=== PATIENT | male | born 2000 | race Caucasian/White ===

== ENCOUNTER 2024-04-03 23:25 | Inpatient (IN) | payer OTHER ==
[~2024-04-03] VITALS: Ht 175.3 cm; Wt 72.7 kg
[2024-04-04 00:33] LABS: BASOPHILS % (AUTO) 0.7 % (0.0-2.0); EOSINOPHILS % (AUTO) 2.4 % (1.0-6.0); HEMATOCRIT 45.4 % (41-53); HEMOGLOBIN 15.5 g/dL (13.5-17.5); LYMPHOCYTES # (AUTO) 2.4 K/uL (1.0-4.8); LYMPHOCYTES % (AUTO) 30.7 % (22.0-44.0); MEAN CORPUSCULAR HEMOGLOBIN 30.4 pg (26.0-34.0); MEAN CORPUSCULAR HGB CONC 34.1 G/dL (31.0-37.0); MEAN CORPUSCULAR VOLUME 89 fL (80-100); MONOCYTES # (AUTO) 0.7 K/uL (0.1-1.0); MONOCYTES % (AUTO) 8.5 % (2.0-9.0); NEUTROPHILS # (AUTO) 4.4 K/uL (1.8-7.7); NEUTROPHILS % (AUTO) 57.7 % (40.0-70.0); PLATELET COUNT (AUTO) 271 K/uL (150-450); RED CELL DISTRIBUTION WIDTH 13.3 % (11.5-14.5); WHITE BLOOD COUNT (AUTO) 7.7 K/uL (4.5-11.0)
[2024-04-04 00:43] LABS: ANION GAP 11 mmol/L (8-16); CALCIUM, TOTAL 8.9 mg/dL (8.8-10.5); CARBON DIOXIDE 26 mmol/L (22-29); CHLORIDE 98 mmol/L (98-107); CREATININE 1.11 mg/dL (0.60-1.30); GLOMERULAR FILTR. RATE CALC > 60 mL/min (>60); GLUCOSE,RANDOM 91 mg/dL (70-110); POTASSIUM 3.7 mmol/L (3.5-5.1); SODIUM SERUM 135 mmol/L (136-145); UREA NITROGEN, BLOOD 16 mg/dL (7-18)
[2024-04-04 00:45] LABS: ALCOHOL, BLOOD (SERUM) < 3 mg/dL (0-10)
[2024-04-04] MEDS: ACETAMINOPHEN 500 MG TABLET PO ONE (01:24)
[2024-04-04 02:10] LABS: COVID AG,FIA SOURCE NASAL SWAB
[2024-04-04 02:23] LABS: SARS-COV2 (COVID) ANTIGEN,FIA Negative (Negative)
[2024-04-04] MEDS ORDERED: ALBUTEROL SULFATE 2.5 MG/0.5 ML NEB SOLUTION NEB PRN (02:30)
[2024-04-04] MEDS ORDERED: IPRATROPIUM BROMIDE 0.5 MG/2.5 ML NEB SOLUTION NEB PRN (02:30)
[2024-04-04] MEDS ORDERED: ZOLPIDEM TARTRATE 5 MG TABLET PO PRN (02:30)
[2024-04-04] MEDS ORDERED: BISACODYL 10 MG RECTAL RECTAL SUPPOSITORY PR PRN (02:30)
[2024-04-04] MEDS ORDERED: ACETAMINOPHEN 325 MG TABLET PO PRN (02:30)
[2024-04-04] MEDS ORDERED: ONDANSETRON HCL 4 MG/2 ML VIAL IVP PRN (02:30)
[2024-04-04] MEDS ORDERED: MAGNESIUM HYDROXIDE SUSPENSION 30 ML UDCUP PO PRN (02:30)
[2024-04-04] MEDS: HEPARIN SODIUM,PORCINE 5,000 UNITS/ML VIAL SQ SCH (07:23)
[2024-04-04] MEDS: PANTOPRAZOLE SODIUM 40 MG DR TABLET PO SCH (08:51)
[2024-04-04 15:50] VITALS: BP 99/58; PULSE 63; RESP 18; TEMP 98.6
[2024-04-04 17:43] LABS: ALCOHOL, URINE DRUG SCREEN NEGATIVE (NEGATIVE); AMPHET/METH SCREEN,URINE NEGATIVE (NEGATIVE); BARBITURATE SCREEN, URINE NEGATIVE (NEGATIVE); BENZODIAZEPINES SCREEN,URINE NEGATIVE (NEGATIVE); CANNABINOID SCREEN,URINE POSITIVE (NEGATIVE); COCAINE SCREEN,URINE NEGATIVE (NEGATIVE); METHADONE SCREEN, URINE NEGATIVE (NEGATIVE); OPIATE SCREEN,URINE NEGATIVE (NEGATIVE); PHENCYCLIDINE SCREEN,URINE NEGATIVE (NEGATIVE)
[2024-04-04 19:03] VITALS: BP 105/56; PULSE 69; RESP 18; TEMP 98.6
[2024-04-06 23:06] VITALS: BP 114/66; PULSE 74; RESP 18; TEMP 98.4
== END 2024-04-07 17:18 | DRG 885 ==
LOC: EMS 23:25 → EDH 04-04 03:16 → 6S 04-04 10:15
PROVIDERS: ADMIT Hospitalist; ATTEND Hospitalist
PROC: GZ56ZZZ Individual Psychotherapy, Supportive (ICD-10-PCS; principal; 2024-04-06)
DX: F33.2 Major depressive disorder, recurrent severe without psychotic features (principal); R45.851 Suicidal ideations; Z20.822 Contact with and (suspected) exposure to COVID-19; R51.9 Headache, unspecified; S50.812A Abrasion of left forearm, initial encounter; G40.909 Epilepsy, unspecified, not intractable, without status epilepticus; X58.XXXA Exposure to other specified factors, initial encounter; Y93.89 Activity, other specified; Y92.89 Other specified places as the place of occurrence of the external cause; Y99.8 Other external cause status
CPT/HCPCS: 80048; 80307; 85025; 99285; G0480; J1644

== ENCOUNTER 2024-04-11 00:57 | Inpatient (IN) | payer OTHER ==
[~2024-04-11] VITALS: Ht 170.2 cm; Wt 72.7 kg
[2024-04-11] MEDS ORDERED: ZOLPIDEM TARTRATE 5 MG TABLET PO PRN (06:15)
[2024-04-11] MEDS ORDERED: ACETAMINOPHEN 325 MG TABLET PO PRN (06:15)
[2024-04-11] MEDS ORDERED: MAGNESIUM HYDROXIDE SUSPENSION 30 ML UDCUP PO PRN (06:15)
[2024-04-11] MEDS: FAMOTIDINE 20 MG TABLET PO SCH (09:00)
[2024-04-11 14:59] LABS: APPEARANCE,URINE CLEAR (CLEAR); BILIRUBIN,URINE NEGATIVE (NEGATIVE); COLOR,URINE YELLOW (YELLOW); GLUCOSE, URINE (UA) NEGATIVE (NEGATIVE); KETONES,URINE TRACE mg/dL (NEGATIVE); LEUKOCYTE ESTERASE ,URINE NEGATIVE (NEGATIVE); NITRATE,URINE NEGATIVE (NEGATIVE); OCCULT BLOOD,URINE NEGATIVE (NEGATIVE); PROTEIN,URINE 30-70 mg/dL (NEGATIVE); SPECIFIC GRAVITIY, URINE 1.035 (1.003-1.030); UROBILINOGEN,URINE <=1.0 mg/dL (<=1.0)
[2024-04-11 15:06] LABS: ALCOHOL, URINE DRUG SCREEN NEGATIVE (NEGATIVE); AMPHET/METH SCREEN,URINE NEGATIVE (NEGATIVE); BARBITURATE SCREEN, URINE NEGATIVE (NEGATIVE); BENZODIAZEPINES SCREEN,URINE NEGATIVE (NEGATIVE); CANNABINOID SCREEN,URINE POSITIVE (NEGATIVE); COCAINE SCREEN,URINE NEGATIVE (NEGATIVE); METHADONE SCREEN, URINE NEGATIVE (NEGATIVE); OPIATE SCREEN,URINE NEGATIVE (NEGATIVE); PHENCYCLIDINE SCREEN,URINE NEGATIVE (NEGATIVE)
[2024-04-11 18:24] VITALS: BP 102/77; PULSE 70; RESP 18; TEMP 98.3; O2SAT 100
[2024-04-11 20:32] VITALS: BP 117/63; PULSE 72; RESP 18; TEMP 98; O2SAT 97
[2024-04-12 04:10] VITALS: BP 102/61; PULSE 59; RESP 20; TEMP 98.4; O2SAT 100
[2024-04-13 03:37] VITALS: BP 110/65; PULSE 64; RESP 20; O2SAT 99
[2024-04-15 09:37] VITALS: BP 132/72; PULSE 72; RESP 19; TEMP 97.5; O2SAT 99
[2024-04-18 08:04] VITALS: BP 120/74; PULSE 63; RESP 18; TEMP 98.5; O2SAT 99
[2024-04-18 20:02] VITALS: BP 93/56; PULSE 83; RESP 18; TEMP 98.5; O2SAT 96
[2024-04-19 00:02] VITALS: BP 97/48; PULSE 70; RESP 18; O2SAT 99
[2024-04-19 04:00] VITALS: BP 100/66; PULSE 74; RESP 19; O2SAT 99
[2024-04-19 16:10] VITALS: BP 94/53; PULSE 60; RESP 19; TEMP 98; O2SAT 98
[2024-04-19 20:00] VITALS: BP 99/59; PULSE 81; RESP 18; TEMP 97.5; O2SAT 97
[2024-04-20 06:31] VITALS: BP 130/83; PULSE 78; RESP 18; TEMP 98; O2SAT 98
== END 2024-04-20 10:22 | DRG 885 ==
LOC: EMS 00:57 → EDH 06:53 → 6S 17:27
PROVIDERS: ADMIT Internal Medicine; ATTEND Internal Medicine
PROC: GZ56ZZZ Individual Psychotherapy, Supportive (ICD-10-PCS; principal; 2024-04-13)
DX: F33.2 Major depressive disorder, recurrent severe without psychotic features (principal); R45.851 Suicidal ideations; I10 Essential (primary) hypertension; G40.909 Epilepsy, unspecified, not intractable, without status epilepticus; Z91.199 Patient's noncompliance with other medical treatment and regimen due to unspecified reason
CPT/HCPCS: 80307; 81003; 99285

== ENCOUNTER 2024-04-20 15:25 | Inpatient (IN) | payer OTHER ==
[~2024-04-20] VITALS: Ht 175.3 cm; Wt 66.3 kg
== END 2024-04-22 17:03 | DRG 881 ==
LOC: EMS 15:25 → EDH 17:10 → 6S 18:15
PROVIDERS: ADMIT Internal Medicine; ATTEND Internal Medicine
PROC: GZ56ZZZ Individual Psychotherapy, Supportive (ICD-10-PCS; principal; 2024-04-21)
DX: F32.A Depression, unspecified (principal); R45.851 Suicidal ideations; I10 Essential (primary) hypertension
CPT/HCPCS: 99285; Z7502

== ENCOUNTER 2024-04-22 18:37 | Emergency (ER) | payer OTHER | END 2024-04-23 02:01 | LOC: EMS 18:52 | DX: R45.88 Nonsuicidal self-harm (principal); F32.A Depression, unspecified | CPT/HCPCS: 99283; Z7502 ==

== ENCOUNTER 2024-04-23 01:09 | Emergency (ER) | payer OTHER | END 2024-04-23 05:50 | LOC: EMS 01:09 | DX: F41.9 Anxiety disorder, unspecified (principal); R45.88 Nonsuicidal self-harm; F32.A Depression, unspecified | CPT/HCPCS: 99283; Z7502 ==

== ENCOUNTER 2024-05-20 16:28 | Inpatient (IN) | payer OTHER ==
[~2024-05-20] VITALS: Ht 167.6 cm; Wt 72.0 kg
[2024-05-20] MEDS ORDERED: ACETAMINOPHEN 325 MG TABLET PO PRN (20:15)
[2024-05-20] MEDS ORDERED: ONDANSETRON HCL 4 MG/2 ML VIAL IVP PRN (20:15)
[2024-05-20] MEDS ORDERED: DEXTROSE 50%-WATER 25 GM/50 ML SYRINGE IVP PRN (20:15)
[2024-05-20] MEDS ORDERED: INSULIN LISPRO 100 UNITS/ML SQ PRN (20:15)
[2024-05-20] MEDS: LORazepam 2 MG/ML VIAL IM ONE (20:24)
[2024-05-20] MEDS: DiphenhydrAMINE HCL 50 MG/ML VIAL IM ONE (20:24)
[2024-05-20] MEDS: HALOPERIDOL LACTATE 5 MG/ML VIAL IM ONE (20:25)
[2024-05-20] MEDS: DOCUSATE SODIUM 100 MG CAPSULE PO SCH (20:37)
[2024-05-20 20:57] LABS: BASOPHILS % (AUTO) 0.8 % (0.0-2.0); EOSINOPHILS % (AUTO) 2.9 % (1.0-6.0); HEMOGLOBIN 14.6 g/dL (13.5-17.5); LYMPHOCYTES # (AUTO) 3.2 K/uL (1.0-4.8); LYMPHOCYTES % (AUTO) 40.1 % (22.0-44.0); MEAN CORPUSCULAR HEMOGLOBIN 29.5 pg (26.0-34.0); MEAN CORPUSCULAR HGB CONC 33.8 G/dL (31.0-37.0); MEAN CORPUSCULAR VOLUME 87 fL (80-100); MONOCYTES # (AUTO) 0.4 K/uL (0.1-1.0); MONOCYTES % (AUTO) 5.4 % (2.0-9.0); NEUTROPHILS % (AUTO) 50.8 % (40.0-70.0); PLATELET COUNT (AUTO) 302 K/uL (150-450); RED BLOOD CELL COUNT(AUTO) 4.93 MIL/uL (4.50-5.90); RED CELL DISTRIBUTION WIDTH 13.8 % (11.5-14.5); WHITE BLOOD COUNT (AUTO) 7.9 K/uL (4.5-11.0)
[2024-05-20 21:13] LABS: ANION GAP 10 mmol/L (8-16); CALCIUM, TOTAL 9.1 mg/dL (8.8-10.5); CARBON DIOXIDE 29 mmol/L (22-29); CHLORIDE 101 mmol/L (98-107); CREATININE 0.83 mg/dL (0.60-1.30); GLOMERULAR FILTR. RATE CALC > 60 mL/min (>60); GLUCOSE,RANDOM 90 mg/dL (70-110); POTASSIUM 3.8 mmol/L (3.5-5.1); SODIUM SERUM 140 mmol/L (136-145); UREA NITROGEN, BLOOD 9 mg/dL (7-18)
[2024-05-20] MEDS: HEPARIN SODIUM,PORCINE 5,000 UNITS/ML VIAL SQ SCH (23:07)
[2024-05-21 08:24] VITALS: BP 128/78; PULSE 78; RESP 18; TEMP 98.4; O2SAT 96
[2024-05-22 06:00] VITALS: BP 95/57; PULSE 68; RESP 18; TEMP 97.7; O2SAT 100
[2024-05-22 08:16] VITALS: BP 92/56; PULSE 61; RESP 18; TEMP 98.3; O2SAT 100
[2024-05-22 13:28] VITALS: BP 98/56; PULSE 88; RESP 20; TEMP 98.3; O2SAT 99
== END 2024-05-23 13:55 | DRG 885 ==
LOC: EMS 16:28 → EDH 20:49 → 6S 05-21 08:07
PROVIDERS: ADMIT Internal Medicine; ATTEND Internal Medicine
DX: F33.2 Major depressive disorder, recurrent severe without psychotic features (principal); R45.851 Suicidal ideations; G40.909 Epilepsy, unspecified, not intractable, without status epilepticus; F60.9 Personality disorder, unspecified; F12.10 Cannabis abuse, uncomplicated; Z91.199 Patient's noncompliance with other medical treatment and regimen due to unspecified reason
CPT/HCPCS: 80048; 85025; 99285; G0378; J1200; J1630; J1644; J2060

== ENCOUNTER 2024-07-09 15:21 | Inpatient (IN) | payer OTHER ==
[~2024-07-09] VITALS: Ht 170.2 cm; Wt 59.1 kg
[2024-07-09 09:18] VITALS: BP 111/72; PULSE 68; RESP 18; TEMP 98; O2SAT 100
[2024-07-09] MEDS ORDERED: MAGNESIUM HYDROXIDE SUSPENSION 30 ML UDCUP PO PRN (21:15)
[2024-07-09] MEDS ORDERED: ONDANSETRON HCL 4 MG/2 ML VIAL IVP PRN (21:15)
[2024-07-09] MEDS ORDERED: BISACODYL 10 MG RECTAL RECTAL SUPPOSITORY PR PRN (21:15)
[2024-07-09 21:35] LABS: BASOPHILS % (AUTO) 0.8 % (0.0-2.0); EOSINOPHILS % (AUTO) 2.3 % (1.0-6.0); HEMOGLOBIN 15.9 g/dL (13.5-17.5); LYMPHOCYTES # (AUTO) 2.7 K/uL (1.0-4.8); LYMPHOCYTES % (AUTO) 42.9 % (22.0-44.0); MEAN CORPUSCULAR HEMOGLOBIN 30.7 pg (26.0-34.0); MEAN CORPUSCULAR HGB CONC 35.3 G/dL (31.0-37.0); MEAN CORPUSCULAR VOLUME 87 fL (80-100); MONOCYTES # (AUTO) 0.6 K/uL (0.1-1.0); NEUTROPHILS # (AUTO) 2.8 K/uL (1.8-7.7); PLATELET COUNT (AUTO) 328 K/uL (150-450); RED BLOOD CELL COUNT(AUTO) 5.17 MIL/uL (4.50-5.90); RED CELL DISTRIBUTION WIDTH 12.6 % (11.5-14.5); WHITE BLOOD COUNT (AUTO) 6.3 K/uL (4.5-11.0)
[2024-07-09 21:43] LABS: ANION GAP 6 mmol/L (8-16); CALCIUM, TOTAL 8.5 mg/dL (8.8-10.5); CARBON DIOXIDE 31 mmol/L (22-29); CHLORIDE 100 mmol/L (98-107); GLOMERULAR FILTR. RATE CALC > 60 mL/min (>60); GLUCOSE,RANDOM 101 mg/dL (70-110); POTASSIUM 3.4 mmol/L (3.5-5.1); SODIUM SERUM 137 mmol/L (136-145); UREA NITROGEN, BLOOD 18 mg/dL (7-18)
[2024-07-09 21:51] LABS: ALCOHOL, BLOOD (SERUM) < 3 mg/dL (0-10)
[2024-07-10 04:38] VITALS: BP 101/57; PULSE 63; RESP 16; TEMP 97.8; O2SAT 100
[2024-07-10] MEDS: DOCUSATE SODIUM 100 MG CAPSULE PO SCH (08:41)
[2024-07-10] MEDS: PANTOPRAZOLE SODIUM 40 MG DR TABLET PO SCH (08:41)
[2024-07-10] MEDS: POTASSIUM CHLORIDE 20 MEQ ER TABLET PO ONE (16:12)
[2024-07-10 16:41] VITALS: BP 104/50; PULSE 70; RESP 19; TEMP 98.3; O2SAT 97
[2024-07-10] MEDS: ACETAMINOPHEN 325 MG TABLET PO PRN (20:17)
[2024-07-10] MEDS: OLANZapine 10 MG TABLET PO SCH (20:17)
[2024-07-11 20:02] VITALS: BP 110/61; PULSE 64; RESP 20; TEMP 97.3; O2SAT 99
[2024-07-12 05:19] VITALS: BP 98/61; PULSE 54; RESP 18; TEMP 97.5; O2SAT 100
[2024-07-12 16:01] LABS: ANION GAP 7 mmol/L (8-16); CALCIUM, TOTAL 8.8 mg/dL (8.8-10.5); CARBON DIOXIDE 30 mmol/L (22-29); CHLORIDE 102 mmol/L (98-107); CREATININE 0.92 mg/dL (0.60-1.30); GLOMERULAR FILTR. RATE CALC > 60 mL/min (>60); GLUCOSE,RANDOM 90 mg/dL (70-110); POTASSIUM 3.9 mmol/L (3.5-5.1); SODIUM SERUM 139 mmol/L (136-145); UREA NITROGEN, BLOOD 16 mg/dL (7-18)
[2024-07-12 20:11] VITALS: BP 111/66; PULSE 69; RESP 18; TEMP 98.4; O2SAT 98
[2024-07-13 16:08] VITALS: BP 116/63; PULSE 75; RESP 18; TEMP 98.4; O2SAT 99
[2024-07-13 20:24] VITALS: BP 100/52; PULSE 66; RESP 18; TEMP 98.1; O2SAT 96
[2024-07-14 20:01] VITALS: BP 98/67; PULSE 88; RESP 20; TEMP 98; O2SAT 96
[2024-07-15 19:46] VITALS: RESP 18; TEMP 98; O2SAT 96
[2024-07-16 19:29] VITALS: BP 99/50; PULSE 81; RESP 18; TEMP 98.4; O2SAT 97
[2024-07-17] MEDS: HEPARIN SODIUM,PORCINE 5,000 UNITS/ML VIAL SQ SCH (16:03)
[2024-07-17 19:38] VITALS: BP 102/57; PULSE 74; RESP 18; TEMP 98.9; O2SAT 98
[2024-07-18 05:00] VITALS: BP 98/56; PULSE 59; RESP 18; TEMP 98.1; O2SAT 97
[2024-07-18 19:40] VITALS: BP 102/53; PULSE 74; RESP 18; TEMP 98.8; O2SAT 95
[2024-07-18] MEDS: ZOLPIDEM TARTRATE 5 MG TABLET PO PRN (23:33)
[2024-07-19 19:40] VITALS: BP 100/54; PULSE 77; RESP 18; TEMP 98; O2SAT 97
[2024-07-20 04:20] VITALS: BP 98/60; PULSE 67; RESP 18; TEMP 98; O2SAT 97
[2024-07-20 20:09] VITALS: BP 114/57; PULSE 70; RESP 19; TEMP 98.1; O2SAT 96
[2024-07-21 20:17] VITALS: BP 101/54; PULSE 82; RESP 18; TEMP 98.2; O2SAT 98
[2024-07-22] MEDS ORDERED: DOCU-385 PO (12:53)
[2024-07-22] MEDS ORDERED: HEPA500018 SQ (12:54)
[2024-07-22] MEDS ORDERED: OLAN10TA74 PO (12:55)
[2024-07-22] MEDS ORDERED: PANT-31 PO (12:56)
[2024-07-22] MEDS ORDERED: ACET-2247 PO (13:05)
[2024-07-22] MEDS ORDERED: BISA10SU11 PR (13:06)
[2024-07-22] MEDS ORDERED: MAGN-169 PO (13:07)
[2024-07-22] MEDS ORDERED: ONDA4VIA60 IVP (13:09)
[2024-07-22] MEDS ORDERED: ZOLP-280 PO (13:10)
== END 2024-07-22 15:30 | DRG 885 ==
LOC: EMS 15:21 → EDH 17:33 → 6S 20:56
PROVIDERS: ADMIT Internal Medicine; ATTEND Internal Medicine
PROC: GZ52ZZZ Individual Psychotherapy, Cognitive (ICD-10-PCS; principal; 2024-07-12)
DX: F25.1 Schizoaffective disorder, depressive type (principal); R45.851 Suicidal ideations; E87.6 Hypokalemia; G40.909 Epilepsy, unspecified, not intractable, without status epilepticus; F17.200 Nicotine dependence, unspecified, uncomplicated; F60.0 Paranoid personality disorder; Z79.899 Other long term (current) drug therapy; Z91.51 Personal history of suicidal behavior
CPT/HCPCS: 80048; 85025; 99285; G0480; J1644

== ENCOUNTER 2024-07-24 01:32 | Inpatient (IN) | payer OTHER ==
[~2024-07-24] VITALS: Ht 170.2 cm; Wt 67.3 kg
[~2024-07-24 01:32] MED LIST: OLAN10TA74 PO; PANT-31 PO
[2024-07-24] MEDS: ONDANSETRON HCL 4 MG/2 ML VIAL IVP ONE (02:05)
[2024-07-24] MEDS: SODIUM CHLORIDE 0.9% 1,000 ML IV ONE ×2 (02:05→06:30)
[2024-07-24 02:36] LABS: COVID AG,FIA SOURCE NASAL SWAB
[2024-07-24 02:38] LABS: BASOPHILS % (AUTO) 0.7 % (0.0-2.0); EOSINOPHILS % (AUTO) 3.5 % (1.0-6.0); HEMATOCRIT 45.9 % (41-53); HEMOGLOBIN 16.2 g/dL (13.5-17.5); LYMPHOCYTES % (AUTO) 35.8 % (22.0-44.0); MEAN CORPUSCULAR HEMOGLOBIN 30.8 pg (26.0-34.0); MEAN CORPUSCULAR HGB CONC 35.3 G/dL (31.0-37.0); MEAN CORPUSCULAR VOLUME 87 fL (80-100); MONOCYTES # (AUTO) 0.7 K/uL (0.1-1.0); MONOCYTES % (AUTO) 8.5 % (2.0-9.0); NEUTROPHILS # (AUTO) 4.3 K/uL (1.8-7.7); NEUTROPHILS % (AUTO) 51.5 % (40.0-70.0); PLATELET COUNT (AUTO) 308 K/uL (150-450); RED BLOOD CELL COUNT(AUTO) 5.27 MIL/uL (4.50-5.90); RED CELL DISTRIBUTION WIDTH 12.3 % (11.5-14.5); WHITE BLOOD COUNT (AUTO) 8.4 K/uL (4.5-11.0)
[2024-07-24 02:41] LABS: SARS-COV2 (COVID) ANTIGEN,FIA Negative (Negative)
[2024-07-24 02:43] LABS: ANION GAP 7 mmol/L (8-16); CALCIUM, TOTAL 9.6 mg/dL (8.8-10.5); CARBON DIOXIDE 29 mmol/L (22-29); CHLORIDE 100 mmol/L (98-107); CREATININE 1.01 mg/dL (0.60-1.30); GLOMERULAR FILTR. RATE CALC > 60 mL/min (>60); GLUCOSE,RANDOM 86 mg/dL (70-110); POTASSIUM 4.7 mmol/L (3.5-5.1); SODIUM SERUM 136 mmol/L (136-145); UREA NITROGEN, BLOOD 18 mg/dL (7-18)
[2024-07-24 02:48] LABS: ALANINE AMINOTRANSFERASE 155 U/L (12-78); ALBUMIN 4.1 g/dL (3.4-5.0); ALKALINE PHOSPHATASE 86 U/L (46-116); ASPARTATE AMINOTRANSFERASE 103 U/L (15-37); BILIRUBIN,TOTAL 0.5 mg/dL (0.1-1.0); TOTAL PROTEIN, SERUM 8.3 g/dL (6.4-8.2)
[2024-07-24] MEDS ORDERED: IPRATROPIUM BROMIDE 0.5 MG/2.5 ML NEB SOLUTION NEB PRN (12:00)
[2024-07-24] MEDS ORDERED: BISACODYL 10 MG RECTAL RECTAL SUPPOSITORY PR PRN (12:00)
[2024-07-24] MEDS ORDERED: ACETAMINOPHEN 325 MG TABLET PO PRN (12:00)
[2024-07-24] MEDS ORDERED: ONDANSETRON HCL 4 MG/2 ML VIAL IVP PRN (12:00)
[2024-07-24] MEDS ORDERED: ALBUTEROL SULFATE 2.5 MG/0.5 ML NEB SOLUTION NEB PRN (12:00)
[2024-07-24] MEDS ORDERED: MORPHINE SULFATE 2 MG/ML SYRINGE IVP PRN (12:00)
[2024-07-24] MEDS ORDERED: MAGNESIUM HYDROXIDE SUSPENSION 30 ML UDCUP PO PRN (12:00)
[2024-07-24] MEDS ORDERED: HYDROCODONE/ACETAMINOPHEN 5-325 MG TABLET PO PRN (12:00)
[2024-07-24 15:00] VITALS: BP 94/51; PULSE 64; RESP 18; TEMP 98.2; O2SAT 100
[2024-07-24] MEDS ORDERED: INFLUENZA VIRUS VACCINE TVS (6MO+) 2024-25/PF 45 MCG/0.5 ML SYRINGE IM. ONE (15:00)
[2024-07-24] MEDS: PEG 3350/NA SULF,BICARB,CL/KCL 4000 ML SOLUTION PO ONE (15:16)
[2024-07-24] MEDS: HEPARIN SODIUM,PORCINE 5,000 UNITS/ML VIAL SQ SCH (16:00)
[2024-07-24 19:57] VITALS: BP 90/53; PULSE 67; RESP 18; TEMP 98.3; O2SAT 100
[2024-07-24] MEDS: ZOLPIDEM TARTRATE 5 MG TABLET PO PRN (20:38)
[2024-07-24] MEDS: DOCUSATE SODIUM 100 MG CAPSULE PO SCH (20:39)
[2024-07-25] MEDS: PANTOPRAZOLE SODIUM 40 MG/VIAL IVP SCH (08:35)
[2024-07-25 11:30] LABS: BASOPHILS % (AUTO) 0.7 % (0.0-2.0); HEMATOCRIT 42.5 % (41-53); HEMOGLOBIN 14.8 g/dL (13.5-17.5); LYMPHOCYTES # (AUTO) 2.3 K/uL (1.0-4.8); LYMPHOCYTES % (AUTO) 37.2 % (22.0-44.0); MEAN CORPUSCULAR HEMOGLOBIN 30.3 pg (26.0-34.0); MEAN CORPUSCULAR HGB CONC 34.7 G/dL (31.0-37.0); MEAN CORPUSCULAR VOLUME 87 fL (80-100); MONOCYTES # (AUTO) 0.5 K/uL (0.1-1.0); MONOCYTES % (AUTO) 8.4 % (2.0-9.0); NEUTROPHILS # (AUTO) 3.1 K/uL (1.8-7.7); NEUTROPHILS % (AUTO) 49.7 % (40.0-70.0); PLATELET COUNT (AUTO) 277 K/uL (150-450); RED BLOOD CELL COUNT(AUTO) 4.88 MIL/uL (4.50-5.90); RED CELL DISTRIBUTION WIDTH 12.2 % (11.5-14.5); WHITE BLOOD COUNT (AUTO) 6.3 K/uL (4.5-11.0)
[2024-07-25 11:40] LABS: ANION GAP 7 mmol/L (8-16); CALCIUM, TOTAL 8.8 mg/dL (8.8-10.5); CARBON DIOXIDE 27 mmol/L (22-29); CHLORIDE 103 mmol/L (98-107); CREATININE 0.89 mg/dL (0.60-1.30); GLOMERULAR FILTR. RATE CALC > 60 mL/min (>60); GLUCOSE,RANDOM 89 mg/dL (70-110); POTASSIUM 3.7 mmol/L (3.5-5.1); SODIUM SERUM 137 mmol/L (136-145); UREA NITROGEN, BLOOD 9 mg/dL (7-18)
[2024-07-25 11:45] LABS: ALANINE AMINOTRANSFERASE 114 U/L (12-78); ALBUMIN 3.5 g/dL (3.4-5.0); ALKALINE PHOSPHATASE 73 U/L (46-116); ASPARTATE AMINOTRANSFERASE 57 U/L (15-37); BILIRUBIN,TOTAL 0.5 mg/dL (0.1-1.0); TOTAL PROTEIN, SERUM 7.1 g/dL (6.4-8.2)
[2024-07-25] MEDS: PEG 3350/NA SULF,BICARB,CL/KCL 4000 ML SOLUTION PO ONE (12:43)
[2024-07-25 20:25] VITALS: BP 102/62; PULSE 64; RESP 18; TEMP 98; O2SAT 96
[2024-07-26 19:25] VITALS: BP 97/56; PULSE 74; RESP 18; TEMP 98.5; O2SAT 95
[2024-07-27 09:24] VITALS: BP 83/43; PULSE 64; RESP 18; TEMP 97.8; O2SAT 94
== END 2024-07-27 13:50 | DRG 395 ==
LOC: EMS 01:32 → EDH 10:25 → UNDOADMIN 14:10 → EDH 14:10 → 6S 14:46 → EDH 14:46
PROVIDERS: ADMIT Hospitalist; ATTEND Hospitalist
DX: T18.4XXA Foreign body in colon, initial encounter (principal); G40.909 Epilepsy, unspecified, not intractable, without status epilepticus; F32.A Depression, unspecified; F20.9 Schizophrenia, unspecified; Z91.51 Personal history of suicidal behavior; Z20.822 Contact with and (suspected) exposure to COVID-19; W44.8XXA Other foreign body entering into or through a natural orifice, initial encounter; Y93.89 Activity, other specified; Y92.89 Other specified places as the place of occurrence of the external cause; Y99.8 Other external cause status
CPT/HCPCS: 74018; 74019; 74176; 80048; 80053; 80076; 85025; 99285; J1644; J2405; J2470; J7030; 36415-L1; 36415-TC

== ENCOUNTER 2024-09-03 14:16 | Inpatient (IN) | payer OTHER ==
[~2024-09-03] VITALS: Ht 175.3 cm; Wt 75.0 kg
[2024-09-03] MEDS ORDERED: ONDANSETRON HCL 4 MG/2 ML VIAL IVP PRN (16:30)
[2024-09-03] MEDS ORDERED: BISACODYL 10 MG RECTAL RECTAL SUPPOSITORY PR PRN (16:30)
[2024-09-03] MEDS ORDERED: 1: MAGNESIUM SULFATE 2 GM, MVI, ADULT NO.1 WITH VIT K 10 ML, THIAMINE 100 MG, FOLIC ACID IV SCH (16:30)
[2024-09-03] MEDS ORDERED: ACETAMINOPHEN 325 MG TABLET PO PRN (16:30)
[2024-09-03] MEDS ORDERED: MAGNESIUM HYDROXIDE SUSPENSION 30 ML UDCUP PO PRN (16:30)
[2024-09-03 17:14] LABS: COVID AG,FIA SOURCE NPH
[2024-09-03 17:36] LABS: SARS-COV2 (COVID) ANTIGEN,FIA Negative (Negative)
[2024-09-03 20:43] LABS: APPEARANCE,URINE CLEAR (CLEAR); BILIRUBIN,URINE NEGATIVE (NEGATIVE); COLOR,URINE LIGHT YELLOW (YELLOW); GLUCOSE, URINE (UA) NEGATIVE (NEGATIVE); KETONES,URINE NEGATIVE (NEGATIVE); LEUKOCYTE ESTERASE ,URINE NEGATIVE (NEGATIVE); NITRATE,URINE NEGATIVE (NEGATIVE); OCCULT BLOOD,URINE NEGATIVE (NEGATIVE); PH,URINE 6.5 (5.0-8.0); PH,URINE DRUG SCREEN 6.5 (5.0-8.0); PROTEIN,URINE NEGATIVE (NEGATIVE); SPECIFIC GRAVITIY, URINE 1.026 (1.003-1.030); UROBILINOGEN,URINE <=1.0 mg/dL (<=1.0)
[2024-09-03 20:50] LABS: ALCOHOL, URINE DRUG SCREEN NEGATIVE (NEGATIVE); AMPHET/METH SCREEN,URINE NEGATIVE (NEGATIVE); BARBITURATE SCREEN, URINE NEGATIVE (NEGATIVE); BENZODIAZEPINES SCREEN,URINE NEGATIVE (NEGATIVE); CANNABINOID SCREEN,URINE NEGATIVE (NEGATIVE); COCAINE SCREEN,URINE NEGATIVE (NEGATIVE); METHADONE SCREEN, URINE NEGATIVE (NEGATIVE); OPIATE SCREEN,URINE NEGATIVE (NEGATIVE); PHENCYCLIDINE SCREEN,URINE NEGATIVE (NEGATIVE)
[2024-09-03 20:59] VITALS: BP 102/59; PULSE 68; RESP 18; TEMP 98.5; O2SAT 100
[2024-09-04] MEDS: HEPARIN SODIUM,PORCINE 5,000 UNITS/ML VIAL SQ SCH
[2024-09-04] MEDS: FAMOTIDINE 20 MG TABLET PO SCH (09:00)
[2024-09-04] MEDS: OLANZapine 10 MG TABLET PO SCH (10:45)
[2024-09-04 14:20] LABS: EOSINOPHILS % (AUTO) 3.4 % (1.0-6.0); HEMATOCRIT 45.5 % (41-53); HEMOGLOBIN 15.5 g/dL (13.5-17.5); LYMPHOCYTES % (AUTO) 37.8 % (22.0-44.0); MEAN CORPUSCULAR HEMOGLOBIN 29.8 pg (26.0-34.0); MEAN CORPUSCULAR HGB CONC 34.2 G/dL (31.0-37.0); MEAN CORPUSCULAR VOLUME 87 fL (80-100); MONOCYTES # (AUTO) 0.3 K/uL (0.1-1.0); MONOCYTES % (AUTO) 6.4 % (2.0-9.0); NEUTROPHILS # (AUTO) 2.6 K/uL (1.8-7.7); NEUTROPHILS % (AUTO) 50.4 % (40.0-70.0); PLATELET COUNT (AUTO) 309 K/uL (150-450); RED BLOOD CELL COUNT(AUTO) 5.22 MIL/uL (4.50-5.90); RED CELL DISTRIBUTION WIDTH 12.3 % (11.5-14.5); WHITE BLOOD COUNT (AUTO) 5.2 K/uL (4.5-11.0)
[2024-09-04 14:25] LABS: ANION GAP 6 mmol/L (8-16); CALCIUM, TOTAL 8.9 mg/dL (8.8-10.5); CARBON DIOXIDE 32 mmol/L (22-29); CHLORIDE 102 mmol/L (98-107); CREATININE 0.99 mg/dL (0.60-1.30); GLOMERULAR FILTR. RATE CALC > 60 mL/min (>60); GLUCOSE,RANDOM 75 mg/dL (70-110); POTASSIUM 4.3 mmol/L (3.5-5.1); SODIUM SERUM 140 mmol/L (136-145); UREA NITROGEN, BLOOD 14 mg/dL (7-18)
[2024-09-04 14:31] LABS: ALCOHOL, BLOOD (SERUM) < 3 mg/dL (0-10)
[2024-09-04 14:39] LABS: ALANINE AMINOTRANSFERASE 19 U/L (12-78); ALBUMIN 3.7 g/dL (3.4-5.0); ALKALINE PHOSPHATASE 92 U/L (46-116); ASPARTATE AMINOTRANSFERASE 28 U/L (15-37); BILIRUBIN,TOTAL 0.4 mg/dL (0.1-1.0); PHOSPHORUS 3.6 mg/dL (2.5-4.9); THYROID STIMULATING HORMONE 1.21 uIU/mL (0.36-3.74); TOTAL PROTEIN, SERUM 7.6 g/dL (6.4-8.2)
[2024-09-04 20:06] VITALS: BP 95/48; PULSE 69; RESP 18; TEMP 98.5; O2SAT 95
[2024-09-05 11:47] VITALS: BP 127/75; PULSE 77; RESP 18; TEMP 96.7; O2SAT 97
[2024-09-05] MEDS: LORazepam 0.5 MG TABLET PO SCH (20:42)
[2024-09-06] MEDS: SODIUM CHLORIDE 0.9% 1,000 ML IV ONE (08:00)
[2024-09-09 06:20] VITALS: BP 120/61; PULSE 53; RESP 20; TEMP 97.8; O2SAT 98
[2024-09-09 20:01] VITALS: BP 103/57; PULSE 73; RESP 18; O2SAT 98
[2024-09-12 22:30] VITALS: BP 95/63; PULSE 77; RESP 18; TEMP 98; O2SAT 99
== END 2024-09-13 18:48 | DRG 641 ==
LOC: EMS 14:16 → EDH 16:30 → 6S 20:33
PROVIDERS: ADMIT Internal Medicine; ATTEND Internal Medicine
PROC: GZ56ZZZ Individual Psychotherapy, Supportive (ICD-10-PCS; 2024-09-04)
PROC: GZ52ZZZ Individual Psychotherapy, Cognitive (ICD-10-PCS; principal; 2024-09-06)
DX: R62.7 Adult failure to thrive (principal); F31.2 Bipolar disorder, current episode manic severe with psychotic features; I10 Essential (primary) hypertension; Z20.822 Contact with and (suspected) exposure to COVID-19; F06.1 Catatonic disorder due to known physiological condition; F29 Unspecified psychosis not due to a substance or known physiological condition; Z91.148 Patient's other noncompliance with medication regimen for other reason; Z68.24 Body mass index [BMI] 24.0-24.9, adult
CPT/HCPCS: 80048; 80076; 80307; 81003; 83735; 84100; 84443; 85025; 94640; 99285; G0480; J1644; J3411; J3475; J3490; J7030

== ENCOUNTER 2024-09-15 15:14 | Inpatient (IN) | payer OTHER ==
[~2024-09-15] VITALS: Ht 175.3 cm; Wt 62.5 kg
[2024-09-15 17:24] LABS: BASOPHILS % (AUTO) 2.9 % (0.0-2.0); EOSINOPHILS % (AUTO) 2.3 % (1.0-6.0); HEMATOCRIT 41.8 % (41-53); HEMOGLOBIN 14.3 g/dL (13.5-17.5); LYMPHOCYTES # (AUTO) 2.1 K/uL (1.0-4.8); LYMPHOCYTES % (AUTO) 31.1 % (22.0-44.0); MEAN CORPUSCULAR HEMOGLOBIN 29.7 pg (26.0-34.0); MEAN CORPUSCULAR HGB CONC 34.1 G/dL (31.0-37.0); MEAN CORPUSCULAR VOLUME 87 fL (80-100); MONOCYTES # (AUTO) 0.5 K/uL (0.1-1.0); MONOCYTES % (AUTO) 7.9 % (2.0-9.0); NEUTROPHILS # (AUTO) 3.8 K/uL (1.8-7.7); NEUTROPHILS % (AUTO) 55.8 % (40.0-70.0); PLATELET COUNT (AUTO) 267 K/uL (150-450); RED BLOOD CELL COUNT(AUTO) 4.81 MIL/uL (4.50-5.90); RED CELL DISTRIBUTION WIDTH 12.4 % (11.5-14.5); WHITE BLOOD COUNT (AUTO) 6.9 K/uL (4.5-11.0)
[2024-09-15 17:33] LABS: ANION GAP 8 mmol/L (8-16); CALCIUM, TOTAL 8.6 mg/dL (8.8-10.5); CARBON DIOXIDE 27 mmol/L (22-29); CHLORIDE 103 mmol/L (98-107); CREATININE 0.94 mg/dL (0.60-1.30); GLOMERULAR FILTR. RATE CALC > 60 mL/min (>60); GLUCOSE,RANDOM 93 mg/dL (70-110); POTASSIUM 3.4 mmol/L (3.5-5.1); SODIUM SERUM 138 mmol/L (136-145); UREA NITROGEN, BLOOD 16 mg/dL (7-18)
[2024-09-15 17:49] LABS: ALCOHOL, BLOOD (SERUM) < 3 mg/dL (0-10)
[2024-09-15] MEDS ORDERED: ZOLPIDEM TARTRATE 5 MG TABLET PO PRN (19:45)
[2024-09-15] MEDS ORDERED: MAGNESIUM HYDROXIDE SUSPENSION 30 ML UDCUP PO PRN (19:45)
[2024-09-15] MEDS ORDERED: ACETAMINOPHEN 325 MG TABLET PO PRN (19:45)
[2024-09-15] MEDS ORDERED: BISACODYL 10 MG RECTAL RECTAL SUPPOSITORY PR PRN (19:45)
[2024-09-15] MEDS ORDERED: ONDANSETRON HCL 4 MG/2 ML VIAL IVP PRN (19:45)
[2024-09-15] MEDS: DOCUSATE SODIUM 100 MG CAPSULE PO SCH (21:00)
[2024-09-15 21:48] VITALS: BP 113/70; PULSE 74; RESP 20; TEMP 99; O2SAT 100
[2024-09-15 22:07] LABS: AMPHET/METH SCREEN,URINE NEGATIVE (NEGATIVE); BARBITURATE SCREEN, URINE NEGATIVE (NEGATIVE); BENZODIAZEPINES SCREEN,URINE NEGATIVE (NEGATIVE); CANNABINOID SCREEN,URINE NEGATIVE (NEGATIVE); COCAINE SCREEN,URINE NEGATIVE (NEGATIVE); METHADONE SCREEN, URINE NEGATIVE (NEGATIVE); OPIATE SCREEN,URINE NEGATIVE (NEGATIVE); PHENCYCLIDINE SCREEN,URINE NEGATIVE (NEGATIVE)
[2024-09-15 22:08] LABS: ALCOHOL, URINE DRUG SCREEN NEGATIVE (NEGATIVE)
[2024-09-15 22:13] LABS: APPEARANCE,URINE HAZY (CLEAR); BILIRUBIN,URINE NEGATIVE (NEGATIVE); COLOR,URINE LIGHT YELLOW (YELLOW); GLUCOSE, URINE (UA) NEGATIVE (NEGATIVE); KETONES,URINE NEGATIVE (NEGATIVE); LEUKOCYTE ESTERASE ,URINE NEGATIVE (NEGATIVE); NITRATE,URINE NEGATIVE (NEGATIVE); OCCULT BLOOD,URINE NEGATIVE (NEGATIVE); PH,URINE 6.5 (5.0-8.0); PH,URINE DRUG SCREEN 6.5 (5.0-8.0); PROTEIN,URINE NEGATIVE (NEGATIVE); SPECIFIC GRAVITIY, URINE 1.025 (1.003-1.030); UROBILINOGEN,URINE <=1.0 mg/dL (<=1.0)
[2024-09-15] MEDS: HEPARIN SODIUM,PORCINE 5,000 UNITS/ML VIAL SQ SCH (23:08)
[2024-09-16] MEDS: PANTOPRAZOLE SODIUM 40 MG DR TABLET PO SCH (08:11)
[2024-09-16] MEDS ORDERED: OLANZapine 10 MG TABLET PO SCH (21:00)
== END 2024-09-16 20:55 | DRG 885 ==
LOC: EMS 15:26 → EDH 19:34 → 6S 21:36
PROVIDERS: ADMIT Internal Medicine; ATTEND Internal Medicine
PROC: GZ56ZZZ Individual Psychotherapy, Supportive (ICD-10-PCS; principal; 2024-09-16)
DX: F31.2 Bipolar disorder, current episode manic severe with psychotic features (principal); E87.6 Hypokalemia; G40.909 Epilepsy, unspecified, not intractable, without status epilepticus; Z76.5 Malingerer [conscious simulation]
CPT/HCPCS: 80048; 80307; 81003; 85025; 99285; G0480; J1644

== ENCOUNTER 2024-09-20 14:00 | Inpatient (IN) | payer OTHER ==
[2024-09-20] MEDS ORDERED: OLAN10TA74 PO (18:04)
[2024-09-20] MEDS ORDERED: PANT-31 PO (18:04)
[2024-09-20] MEDS ORDERED: BISACODYL 10 MG RECTAL RECTAL SUPPOSITORY PR PRN (19:15)
[2024-09-20] MEDS ORDERED: ACETAMINOPHEN 325 MG TABLET PO PRN (19:15)
[2024-09-20] MEDS ORDERED: IPRATROPIUM BROMIDE 0.5 MG/2.5 ML NEB SOLUTION NEB PRN (19:15)
[2024-09-20] MEDS ORDERED: MAGNESIUM HYDROXIDE SUSPENSION 30 ML UDCUP PO PRN (19:15)
[2024-09-20] MEDS ORDERED: ZOLPIDEM TARTRATE 5 MG TABLET PO PRN (19:15)
[2024-09-20] MEDS ORDERED: ONDANSETRON HCL 4 MG/2 ML VIAL IVP PRN (19:15)
[2024-09-20] MEDS ORDERED: ALBUTEROL SULFATE 2.5 MG/0.5 ML NEB SOLUTION NEB PRN (19:15)
[2024-09-21] MEDS: LORazepam 2 MG/ML VIAL IM ONE (00:51)
[2024-09-21] MEDS: HALOPERIDOL LACTATE 5 MG/ML VIAL IM ONE (00:54)
[2024-09-21] MEDS: DiphenhydrAMINE HCL 50 MG/ML VIAL IM ONE (00:54)
[2024-09-21] MEDS: HEPARIN SODIUM,PORCINE 5,000 UNITS/ML VIAL SQ SCH (00:55)
[2024-09-21] MEDS: PANTOPRAZOLE SODIUM 40 MG DR TABLET PO SCH (09:00)
[2024-09-21] MEDS ORDERED: SERTRALINE HCL 50 MG TABLET PO SCH (12:00)
[2024-09-21] MEDS: OLANZapine 10 MG TABLET PO SCH (12:00)
[2024-09-22 20:19] VITALS: BP 101/63; PULSE 82; RESP 20; TEMP 98; O2SAT 98
[2024-09-22 21:05] LABS: BASOPHILS % (AUTO) 1.2 % (0.0-2.0); EOSINOPHILS % (AUTO) 2.3 % (1.0-6.0); HEMATOCRIT 43.4 % (41-53); HEMOGLOBIN 14.8 g/dL (13.5-17.5); LYMPHOCYTES # (AUTO) 2.2 K/uL (1.0-4.8); LYMPHOCYTES % (AUTO) 41.4 % (22.0-44.0); MEAN CORPUSCULAR HEMOGLOBIN 29.6 pg (26.0-34.0); MEAN CORPUSCULAR HGB CONC 34.1 G/dL (31.0-37.0); MEAN CORPUSCULAR VOLUME 87 fL (80-100); MONOCYTES # (AUTO) 0.4 K/uL (0.1-1.0); MONOCYTES % (AUTO) 7.7 % (2.0-9.0); NEUTROPHILS # (AUTO) 2.5 K/uL (1.8-7.7); NEUTROPHILS % (AUTO) 47.4 % (40.0-70.0); PLATELET COUNT (AUTO) 340 K/uL (150-450); RED CELL DISTRIBUTION WIDTH 12.7 % (11.5-14.5); WHITE BLOOD COUNT (AUTO) 5.2 K/uL (4.5-11.0)
[2024-09-22 21:17] LABS: ANION GAP 9 mmol/L (8-16); CALCIUM, TOTAL 8.4 mg/dL (8.8-10.5); CARBON DIOXIDE 28 mmol/L (22-29); CHLORIDE 102 mmol/L (98-107); GLOMERULAR FILTR. RATE CALC > 60 mL/min (>60); GLUCOSE,RANDOM 115 mg/dL (70-110); POTASSIUM 3.7 mmol/L (3.5-5.1); SODIUM SERUM 139 mmol/L (136-145); UREA NITROGEN, BLOOD 22 mg/dL (7-18)
[2024-09-22 21:50] LABS: ALCOHOL, BLOOD (SERUM) < 3 mg/dL (0-10)
[2024-09-23 02:55] VITALS: BP 109/70; PULSE 80; RESP 20; TEMP 98.8; O2SAT 94
[2024-09-23] MEDS ORDERED: ALBU2.5V39 NEB (11:07)
[2024-09-23] MEDS ORDERED: ACET-2247 PO (11:07)
[2024-09-23] MEDS ORDERED: MAGN-169 PO (11:08)
[2024-09-23] MEDS ORDERED: BISA-151 PO (11:08)
[2024-09-23 19:35] VITALS: BP 106/56; PULSE 74; RESP 20; TEMP 98.4; O2SAT 99
== END 2024-09-23 22:00 | DRG 885 ==
LOC: EMS 14:00 → EDH 19:34 → 6S 21:35
PROVIDERS: ADMIT Hospitalist; ATTEND Hospitalist
PROC: GZ56ZZZ Individual Psychotherapy, Supportive (ICD-10-PCS; principal; 2024-09-21)
DX: F31.2 Bipolar disorder, current episode manic severe with psychotic features (principal); F29 Unspecified psychosis not due to a substance or known physiological condition; I10 Essential (primary) hypertension; G40.909 Epilepsy, unspecified, not intractable, without status epilepticus; Z76.5 Malingerer [conscious simulation]
CPT/HCPCS: 80048; 85025; 99285; G0480; J1200; J1630; J1644; J2060

== ENCOUNTER 2024-10-15 16:53 | Inpatient (IN) | payer OTHER ==
[~2024-10-15] VITALS: Ht 172.7 cm; Wt 68.4 kg
[~2024-10-15 16:53] MED LIST changes: +ACET-2247 PO; +ALBU2.5V39 NEB; +BISA-151 PO; +MAGN-169 PO
[2024-10-15] MEDS: SULFAMETHOX/TRIMETH DS 800-160 MG/TABLET PO ONE (17:17)
[2024-10-15] MEDS: CEPHALEXIN MONOHYDRATE 500 MG CAPSULE PO ONE (17:17)
[2024-10-15] MEDS: BACITRACIN 28 GM OINTMENT TP ONE (17:17)
[2024-10-15 17:42] LABS: BASOPHILS % (AUTO) 0.2 % (0.0-2.0); EOSINOPHILS % (AUTO) 4.7 % (1.0-6.0); HEMATOCRIT 38.6 % (41-53); LYMPHOCYTES # (AUTO) 2.9 K/uL (1.0-4.8); LYMPHOCYTES % (AUTO) 40.7 % (22.0-44.0); MEAN CORPUSCULAR HEMOGLOBIN 29.7 pg (26.0-34.0); MEAN CORPUSCULAR HGB CONC 33.8 G/dL (31.0-37.0); MEAN CORPUSCULAR VOLUME 88 fL (80-100); MONOCYTES # (AUTO) 0.5 K/uL (0.1-1.0); MONOCYTES % (AUTO) 7.7 % (2.0-9.0); NEUTROPHILS # (AUTO) 3.3 K/uL (1.8-7.7); NEUTROPHILS % (AUTO) 46.7 % (40.0-70.0); PLATELET COUNT (AUTO) 299 K/uL (150-450); RED BLOOD CELL COUNT(AUTO) 4.39 MIL/uL (4.50-5.90); RED CELL DISTRIBUTION WIDTH 13.3 % (11.5-14.5)
[2024-10-15 17:50] LABS: ANION GAP 8 mmol/L (8-16); CALCIUM, TOTAL 8.7 mg/dL (8.8-10.5); CARBON DIOXIDE 31 mmol/L (22-29); CHLORIDE 104 mmol/L (98-107); CREATININE 0.94 mg/dL (0.60-1.30); GLOMERULAR FILTR. RATE CALC > 60 mL/min (>60); GLUCOSE,RANDOM 90 mg/dL (70-110); POTASSIUM 4.1 mmol/L (3.5-5.1); SODIUM SERUM 143 mmol/L (136-145); UREA NITROGEN, BLOOD 19 mg/dL (7-18)
[2024-10-15 17:52] LABS: ALCOHOL, BLOOD (SERUM) < 3 mg/dL (0-10)
[2024-10-15] MEDS: SULFAMETHOX/TRIMETH DS 800-160 MG/TABLET PO SCH (20:51)
[2024-10-15] MEDS: CEPHALEXIN MONOHYDRATE 500 MG CAPSULE PO SCH (20:51)
[2024-10-15] MEDS: OLANZapine 10 MG TABLET PO SCH (20:52)
[2024-10-16 19:29] VITALS: BP 118/77; PULSE 64; RESP 18; TEMP 98; O2SAT 100
[2024-10-17] MEDS: LORazepam 2 MG/ML VIAL IM ONE (06:22)
[2024-10-17 07:45] VITALS: BP 91/55; PULSE 70; RESP 18; TEMP 97.2; O2SAT 100
[2024-10-18] MEDS: BACITRACIN 28 GM OINTMENT TP SCH (08:57)
[2024-10-18] MEDS ORDERED: BACI28.410 TP (13:26)
== END 2024-10-18 18:05 | DRG 885 ==
LOC: EMS 16:53 → EDH 19:59 → 6S 10-16 08:49
PROVIDERS: ADMIT Internal Medicine; ATTEND Internal Medicine
PROC: GZ56ZZZ Individual Psychotherapy, Supportive (ICD-10-PCS; principal; 2024-10-18)
DX: F31.4 Bipolar disorder, current episode depressed, severe, without psychotic features (principal); E43 Unspecified severe protein-calorie malnutrition; R45.851 Suicidal ideations; F60.9 Personality disorder, unspecified; D64.9 Anemia, unspecified; G40.909 Epilepsy, unspecified, not intractable, without status epilepticus; J45.909 Unspecified asthma, uncomplicated; Z68.22 Body mass index [BMI] 22.0-22.9, adult; S01.01XA Laceration without foreign body of scalp, initial encounter; X78.9XXA Intentional self-harm by unspecified sharp object, initial encounter; Y93.89 Activity, other specified; Y92.89 Other specified places as the place of occurrence of the external cause; Y99.8 Other external cause status
CPT/HCPCS: 80048; 85025; 99285; G0378; G0480; J2060

== ENCOUNTER 2024-10-18 17:38 | Inpatient (IN) | payer OTHER ==
[~2024-10-18] VITALS: Ht 172.7 cm; Wt 68.4 kg
[~2024-10-18 17:38] MED LIST changes: +BACI28.410 TP
[2024-10-18] MEDS: LORazepam 2 MG/ML VIAL IVP ONE (17:45)
[2024-10-18] MEDS: KETAMINE HCL 50 MG/ML 10 ML VIAL IVP ONE (17:56)
[2024-10-18 18:01] LABS: BASOPHILS % (AUTO) 0.9 % (0.0-2.0); EOSINOPHILS % (AUTO) 2.7 % (1.0-6.0); HEMATOCRIT 42.1 % (41-53); HEMOGLOBIN 14.3 g/dL (13.5-17.5); LYMPHOCYTES # (AUTO) 5.1 K/uL (1.0-4.8); LYMPHOCYTES % (AUTO) 39.2 % (22.0-44.0); MEAN CORPUSCULAR HEMOGLOBIN 30.2 pg (26.0-34.0); MEAN CORPUSCULAR VOLUME 89 fL (80-100); MONOCYTES # (AUTO) 0.9 K/uL (0.1-1.0); MONOCYTES % (AUTO) 7.2 % (2.0-9.0); NEUTROPHILS # (AUTO) 6.5 K/uL (1.8-7.7); PLATELET COUNT (AUTO) 373 K/uL (150-450); RED BLOOD CELL COUNT(AUTO) 4.75 MIL/uL (4.50-5.90); RED CELL DISTRIBUTION WIDTH 13.8 % (11.5-14.5)
[2024-10-18 18:09] LABS: PROTHROMBIN TIME 10.9 SEC (9.4-11.6)
[2024-10-18 18:29] VITALS: O2SAT 97
[2024-10-18 18:29] LABS: ANION GAP 15 mmol/L (8-16); CALCIUM, TOTAL 9.5 mg/dL (8.8-10.5); CARBON DIOXIDE 24 mmol/L (22-29); CHLORIDE 102 mmol/L (98-107); GLOMERULAR FILTR. RATE CALC > 60 mL/min (>60); GLUCOSE,RANDOM 92 mg/dL (70-110); POTASSIUM 4.7 mmol/L (3.5-5.1); SODIUM SERUM 140 mmol/L (136-145); UREA NITROGEN, BLOOD 19 mg/dL (7-18)
[2024-10-18 22:00] VITALS: BP 122/71; PULSE 79; RESP 15; O2SAT 99
[2024-10-18] MEDS ORDERED: IPRATROPIUM BROMIDE 0.5 MG/2.5 ML NEB SOLUTION NEB PRN (23:00)
[2024-10-18] MEDS ORDERED: BISACODYL 10 MG RECTAL RECTAL SUPPOSITORY PR PRN (23:00)
[2024-10-18] MEDS ORDERED: ACETAMINOPHEN 325 MG TABLET PO PRN (23:00)
[2024-10-18] MEDS ORDERED: ZOLPIDEM TARTRATE 5 MG TABLET PO PRN (23:00)
[2024-10-18] MEDS ORDERED: MAGNESIUM HYDROXIDE SUSPENSION 30 ML UDCUP PO PRN (23:00)
[2024-10-18] MEDS ORDERED: ONDANSETRON HCL 4 MG/2 ML VIAL IVP PRN (23:00)
[2024-10-18] MEDS ORDERED: ALBUTEROL SULFATE 2.5 MG/0.5 ML NEB SOLUTION NEB PRN (23:00)
[2024-10-19 06:07] LABS: HEPATITIS C AB (EIA) Non Reactive (Non Reactive)
[2024-10-19] MEDS: BACITRACIN 28 GM OINTMENT TP SCH (08:57)
[2024-10-19] MEDS: PANTOPRAZOLE SODIUM 40 MG DR TABLET PO SCH (08:57)
[2024-10-19] MEDS ORDERED: HALOPERIDOL LACTATE 5 MG/ML VIAL ONE (14:56)
[2024-10-19] MEDS ORDERED: ChlorproMAZINE HCL 50 MG/2 ML AMP ONE ×2 (16:14)
[2024-10-19] MEDS: DiphenhydrAMINE HCL 50 MG/ML VIAL IM ONE ×2 (16:30→16:33)
[2024-10-19] MEDS: LORazepam 2 MG/ML VIAL IM ONE (16:31)
[2024-10-19] MEDS: HALOPERIDOL 5 MG TABLET PO ONE (16:33)
[2024-10-19] MEDS: ChlorproMAZINE HCL 50 MG/2 ML AMP IM ONE (16:33)
[2024-10-19] MEDS: HALOPERIDOL LACTATE 5 MG/ML VIAL IM ONE (18:40)
[2024-10-19] MEDS: OLANZapine 10 MG TABLET PO SCH (21:00)
== END 2024-10-21 16:35 | DRG 605 ==
LOC: EMS 17:48 → EDH 22:54 → 6S 10-19 01:58
PROVIDERS: ADMIT Hospitalist; ATTEND Hospitalist
PROC: 0HQ0XZZ Repair Scalp Skin, External Approach (ICD-10-PCS; principal; 2024-10-18)
PROC: GZ56ZZZ Individual Psychotherapy, Supportive (ICD-10-PCS; 2024-10-19)
DX: S01.01XA Laceration without foreign body of scalp, initial encounter (principal); F31.4 Bipolar disorder, current episode depressed, severe, without psychotic features; F23 Brief psychotic disorder; I10 Essential (primary) hypertension; G40.909 Epilepsy, unspecified, not intractable, without status epilepticus; F94.0 Selective mutism; F60.9 Personality disorder, unspecified; D72.829 Elevated white blood cell count, unspecified; X58.XXXA Exposure to other specified factors, initial encounter; Y93.89 Activity, other specified; Y92.89 Other specified places as the place of occurrence of the external cause; Y99.8 Other external cause status
CPT/HCPCS: 12005; 70450; 70486; 72125; 80048; 84460; 85025; 85610; 85730; 86803; 87340; 99291; G0378; J1200; J1630; J2060; J3230; J3490; 36415-L1; 36415-TC; Z7502; Z7610

== ENCOUNTER 2024-10-24 18:21 | Emergency (ER) | payer OTHER ==
[~2024-10-24] VITALS: Ht 167.6 cm; Wt 72.7 kg
[~2024-10-24 18:21] MED LIST changes: -ACET-2247 PO; -ALBU2.5V39 NEB; -BISA-151 PO; -MAGN-169 PO
[2024-10-24 19:32] VITALS: TEMP 98.1
[2024-10-24 19:50] VITALS: BP 105/64; PULSE 70; RESP 16; O2SAT 99
[2024-10-24] MEDS: LIDOCAINE 1%/EPI 1:200,000/PF 10 ML VIAL SQ ONE (20:05)
[2024-10-24] MEDS: TraMADol HCL 50 MG TABLET PO ONE (20:05)
== END 2024-10-24 22:47 ==
LOC: EMS 18:21
DX: Z48.00 Encounter for change or removal of nonsurgical wound dressing (principal); Z79.899 Other long term (current) drug therapy
CPT/HCPCS: 99283; 96372; J3490

== ENCOUNTER 2024-11-26 12:36 | Emergency (ER) | payer OTHER ==
[~2024-11-26] VITALS: Ht 167.6 cm; Wt 72.7 kg
[2024-11-26 13:03] VITALS: BP 108/72; PULSE 77; RESP 16; TEMP 98.4; O2SAT 99
== END 2024-11-26 13:32 ==
LOC: EMS 12:36
DX: S01.01XD Laceration without foreign body of scalp, subsequent encounter (principal); F25.9 Schizoaffective disorder, unspecified; G40.909 Epilepsy, unspecified, not intractable, without status epilepticus; Z79.899 Other long term (current) drug therapy; X58.XXXD Exposure to other specified factors, subsequent encounter
CPT/HCPCS: 99283; Z7502